=== PATIENT | male | born 1955 | race Caucasian/White ===

== ENCOUNTER 2018-05-18 22:49 | Inpatient (IN) | payer MEDICARE, OTHER ==
[2018-05-18] MEDS ORDERED: NORepinephrine 8MG/250 ML (PMX 250 ML IV (23:00)
[2018-05-18] MEDS: SOD CHLORIDE 0.9% 250 ML IV (23:43)
[2018-05-19] MEDS ORDERED: DEXTROSE 5%-0.9% NACL 1,000 ML IV
[2018-05-19] MEDS ORDERED: ACETAMINOPHEN 650MG/20.3ML CUP GTB
[2018-05-19 00:15] LABS: ADD MAN DIFF? NO
[2018-05-19 00:20] LABS: BASOPHILS % 0.2 % (0.0-2.0); EOSINOPHILS # 0.4 10^3/ul (0.0-0.5); EOSINOPHILS % 4.1 % (0.0-7.0); HEMATOCRIT 22.8 % (42.0-52.0); HEMOGLOBIN 7.4 g/dl (14.0-18.0); LYMPHOCYTES # 1.2 10^3/ul (0.8-2.9); LYMPHOCYTES % 10.9 % (15.0-51.0); MEAN CORPUSCULAR HEMOGLOBIN 29.2 pg (29.0-33.0); MEAN CORPUSCULAR HGB CONC 32.5 g/dl (32.0-37.0); MEAN CORPUSCULAR VOLUME 90.1 fl (82.0-101.0); MEAN PLATELET VOLUME 8.7 fl (7.4-10.4); MONOCYTE # 0.6 10^3/ul (0.3-0.9); MONOCYTES % 5.6 % (0.0-11.0); NEUTROPHIL # 8.4 10^3/ul (1.6-7.5); NEUTROPHILS % 78.7 % (39.0-77.0); PLATELET COUNT 205 10^3/UL (140-415); RED BLOOD COUNT 2.53 10^6/ul (4.70-6.10); RED CELL DISTRIBUTION WIDTH 14.8 % (11.5-14.5)
[2018-05-19 00:20] LABS: WHITE BLOOD COUNT 10.7 10^3/ul (4.8-10.8)
[2018-05-19 00:44] LABS: LACTIC ACID 1.5 mmol/L (0.5-2.0)
[2018-05-19] MEDS: INSULIN ASPART [NOVOLOG] 3 ML PEN SC ×6 (00:45→21:00)
[2018-05-19 00:46] LABS: ANION GAP 11 (5-13); BLOOD UREA NITROGEN 47 mg/dl (7-20); CALCIUM 9.3 mg/dl (8.4-10.2); CARBON DIOXIDE 20 mmol/L (21-31); CHLORIDE 104 mmol/L (97-110); CREATININE 1.02 mg/dl (0.61-1.24); Estimated GFR > 60 mL/min (>60); GLUCOSE 76 mg/dl (70-220); MAGNESIUM 1.6 mg/dl (1.7-2.5); POTASSIUM 3.5 mmol/L (3.5-5.1); SODIUM 135 mmol/L (135-144)
[2018-05-19] MEDS: METOCLOPRAMIDE 10 MG INJ IV ×5 (00:55→23:19)
[2018-05-19] MEDS: VANCOMYCIN 750 MG (PMX) 250 ML IVPB ×2 (00:55→15:06)
[2018-05-19] MEDS: GENTAMICIN 0.3% 5 ML OPH BOTH EYES ×7 (00:56→23:19)
[2018-05-19] MEDS ORDERED: DEXTROSE 50% 50 ML SYRINGE IV (01:00)
[2018-05-19] MEDS ORDERED: GLUCAGON 1 MG INJ IM ×2 (01:00)
[2018-05-19] MEDS ORDERED: GLUCOSE GEL 15 GRAM TUBE PO ×2 (01:00)
[2018-05-19] MEDS ORDERED: GLUCOSE GEL 15 GRAM TUBE BUCCAL (01:00)
[2018-05-19] MEDS: MAGNESIUM SULFATE 2 GM/50 ML 50 ML IVPB ×2 (01:20→13:42)
[2018-05-19] MEDS: POTASSIUM CHLORIDE 30 MEQ in DEXTROSE 5%-0.9% NACL 1,000 ML IV ×3 (01:35→21:25)
[2018-05-19] MEDS ORDERED: ACCU-CHEK XX (02:00)
[2018-05-19] MEDS: LANSOPRAZOLE 30 MG CAP GTB ×2 (05:08→17:28)
[2018-05-19] MEDS: MIDODRINE 5 MG TAB GTB ×3 (05:08→21:23)
[2018-05-19] MEDS: MEROPENEM 500MG/50 ML (PMX) 50 ML IVPB ×3 (05:09→21:45)
[2018-05-19 05:12] LABS: IMMEDIATE SPIN CROSSMATCH 1 2
[2018-05-19 07:51] LABS: AADO2 Arterial 95.2 mmHg (7.0-24.0); Allen Test ACCEPTAB; Arterial Blood Gas Oxygen Sat 94.4 mmHG (95.0-98.0); Arterial COHb 0.4 % (0.0-3.0); Arterial Fraction of Oxyhgb 93.7 % (93.0-99.0); Arterial HCO3 17.6 mmol/L (22.0-26.0); Arterial MetHb 0.3 % (0.0-1.5); MODE VENT - AC; Site Right Radial
[2018-05-19] MEDS: PHENYLephrine 20MG IN 250 ML 250 ML IV ×5 (08:32→17:22)
[2018-05-19] MEDS: ATENOLOL 25 MG TAB GTB ×2 (09:00→21:00)
[2018-05-19] MEDS: ASPIRIN 325 MG TAB GTB (09:00)
[2018-05-19] MEDS: FLUCONAZOLE 200 MG TAB GTB (09:20)
[2018-05-19] MEDS: LEVETIRACETAM (100 MG/ML) 5ML CUP GTB ×2 (09:21→21:23)
[2018-05-19] MEDS: NYSTATIN 30 GM POWDER BTL TOP ×2 (09:21→21:25)
[2018-05-19] MEDS: MEMANTINE 10 MG TAB GTB (09:21)
[2018-05-19] MEDS: SCOPOLAMINE 1.5 MG PATCH TRANSDERM (09:22)
[2018-05-19] MEDS: SILVER SULFADIAZINE 1% 25 GM CR TOP ×2 (09:22→21:25)
[2018-05-19] MEDS: INSULIN GLARGINE [LANTus] (100 UNITS/ML) SYG SC (09:33)
[2018-05-19 10:33] LABS: ADD UMIC YES; UR ASCORBIC ACID 40 mg/dL (NEGATIVE); UR BACTERIA FEW /HPF (NONE SEEN); UR BILIRUBIN (Dip) NEGATIVE (NEGATIVE); UR BLOOD (Dip) NEGATIVE (NEGATIVE); UR CLARITY SLIGHTLY CLOUDY (CLEAR); UR COLOR YELLOW (YELLOW); UR GLUCOSE (Dip) NEGATIVE (NEGATIVE); UR KETONES (Dip) NEGATIVE (NEGATIVE); UR LEUKOCYTE ESTERASE (Dip) NEGATIVE Leu/ul (NEGATIVE); UR NITRITE (Dip) NEGATIVE (NEGATIVE); UR RBC 1 /HPF (0-5); UR TOTAL PROTEIN (Dip) 1+ mg/dl (NEGATIVE); UR UROBILINOGEN (Dip) NEGATIVE (NEGATIVE); UR WBC 2 /HPF (0-5)
[2018-05-19] MEDS: LIDOCAINE 1% (MPF) 5 ML VIAL SC (11:10)
[2018-05-19] MEDS ORDERED: DOPamine-D5W 1.6 MG/ML 250 ML IV (12:30)
[2018-05-19 12:54] LABS: CREATINE KINASE < 20 IU/L (23-200)
[2018-05-19 13:05] LABS: TROPONIN-I < 0.012 ng/ml (0.000-0.120)
[2018-05-19] MEDS ORDERED: DOPamine 800 MG in DEXTROSE 5% 230 ML IV (13:30)
[2018-05-19] MEDS: POTASSIUM CHLORIDE 50 ML IVPB ×2 (13:41→15:34)
[2018-05-19] MEDS ORDERED: PHENYLephrine 20MG IN 250 ML 250 ML (17:04)
[2018-05-19] MEDS: PHENYLephrine 80 MG in DEXTROSE 5% 242 ML IV ×2 (18:44→23:59)
[2018-05-19 18:49] LABS: CK-MB 0.77 ng/ml (0.0-2.4); TROPONIN-I 0.013 ng/ml (0.000-0.120)
[2018-05-19 18:51] LABS: CREATINE KINASE < 20 IU/L (23-200)
[2018-05-19 19:02] LABS: HEMATOCRIT 29.8 % (42.0-52.0); HEMOGLOBIN 9.8 g/dl (14.0-18.0)
[2018-05-19] MEDS ORDERED: ATORVASTATIN 20 MG TAB (19:57)
[2018-05-19] MEDS: ATORVASTATIN 20 MG TAB GTB (21:23)
[2018-05-19] MEDS: LORAZEPAM 4 MG/ML VIAL IV (23:19)
[2018-05-20] MEDS: HYDROmorphONE 1 MG/ML SYG IV (00:39)
[2018-05-20] MEDS: SOD CHLORIDE 0.9% 250 ML IV (00:39)
[2018-05-20] MEDS: INSULIN ASPART [NOVOLOG] 3 ML PEN SC ×6 (00:39→20:19)
[2018-05-20 01:10] LABS: VANCOMYCIN,TROUGH 14.6 ug/ml (10.0-20.0)
[2018-05-20 01:16] LABS: CREATINE KINASE < 20 IU/L (23-200)
[2018-05-20 01:19] LABS: CK-MB 0.92 ng/ml (0.0-2.4); TROPONIN-I 0.047 ng/ml (0.000-0.120)
[2018-05-20] MEDS: VANCOMYCIN 750 MG (PMX) 250 ML IVPB (02:58)
[2018-05-20] MEDS: GENTAMICIN 0.3% 5 ML OPH BOTH EYES ×5 (04:57→20:13)
[2018-05-20 05:03] LABS: ADD MAN DIFF? NO
[2018-05-20 05:06] LABS: BASOPHIL # 0.1 10^3/ul (0.0-0.1); BASOPHILS % 0.3 % (0.0-2.0); EOSINOPHILS # 0.3 10^3/ul (0.0-0.5); EOSINOPHILS % 1.4 % (0.0-7.0); HEMATOCRIT 29.2 % (42.0-52.0); HEMOGLOBIN 9.5 g/dl (14.0-18.0); LYMPHOCYTES # 1.6 10^3/ul (0.8-2.9); LYMPHOCYTES % 8.8 % (15.0-51.0); MEAN CORPUSCULAR HEMOGLOBIN 29.4 pg (29.0-33.0); MEAN CORPUSCULAR HGB CONC 32.5 g/dl (32.0-37.0); MEAN CORPUSCULAR VOLUME 90.4 fl (82.0-101.0); MEAN PLATELET VOLUME 8.7 fl (7.4-10.4); MONOCYTE # 1.2 10^3/ul (0.3-0.9); MONOCYTES % 6.7 % (0.0-11.0); NEUTROPHIL # 14.9 10^3/ul (1.6-7.5); NEUTROPHILS % 81.9 % (39.0-77.0); PLATELET COUNT 186 10^3/UL (140-415); RED BLOOD COUNT 3.23 10^6/ul (4.70-6.10)
[2018-05-20 05:06] LABS: WHITE BLOOD COUNT 18.2 10^3/ul (4.8-10.8)
[2018-05-20 05:33] LABS: ALBUMIN/GLOBULIN RATIO 0.41; ALKALINE PHOSPHATASE 328 IU/L (42-121); ANION GAP 11 (5-13); ASPARTATE AMINO TRANSFERASE 28 IU/L (15-46); BILIRUBIN,TOTAL 0.7 mg/dl (0.2-1.3); BLOOD UREA NITROGEN 44 mg/dl (7-20); CALCIUM 9.6 mg/dl (8.4-10.2); CARBON DIOXIDE 15 mmol/L (21-31); CHLORIDE 107 mmol/L (97-110); CREATININE 1.38 mg/dl (0.61-1.24); Estimated GFR 52 mL/min (>60); GLUCOSE 136 mg/dl (70-220); POTASSIUM 4.8 mmol/L (3.5-5.1); SODIUM 133 mmol/L (135-144); TOTAL PROTEIN 6.8 g/dl (6.1-8.1)
[2018-05-20 05:34] LABS: ALANINE AMINOTRANSFERASE < 6 IU/L (13-69)
[2018-05-20] MEDS: LANSOPRAZOLE 30 MG CAP GTB ×2 (05:35→18:07)
[2018-05-20] MEDS: METOCLOPRAMIDE 10 MG INJ IV ×3 (05:35→18:07)
[2018-05-20] MEDS: MIDODRINE 5 MG TAB GTB ×3 (05:35→21:55)
[2018-05-20] MEDS: PHENYLephrine 80 MG in DEXTROSE 5% 242 ML IV ×3 (05:41→18:11)
[2018-05-20] MEDS: MEROPENEM 500MG/50 ML (PMX) 50 ML IVPB ×3 (05:58→21:55)
[2018-05-20 06:25] LABS: OCCULT BLOOD STOOL POSITIVE (NEGATIVE)
[2018-05-20] MEDS: FLUCONAZOLE 200 MG TAB GTB (08:25)
[2018-05-20] MEDS: LEVETIRACETAM (100 MG/ML) 5ML CUP GTB ×2 (08:25→20:14)
[2018-05-20] MEDS: ATENOLOL 25 MG TAB GTB ×2 (08:26→21:00)
[2018-05-20] MEDS: SILVER SULFADIAZINE 1% 25 GM CR TOP ×2 (08:27→20:14)
[2018-05-20] MEDS: NYSTATIN 30 GM POWDER BTL TOP ×2 (08:27→20:14)
[2018-05-20] MEDS: INSULIN GLARGINE [LANTus] (100 UNITS/ML) SYG SC ×2 (09:00→09:21)
[2018-05-20] MEDS: POTASSIUM CHLORIDE 30 MEQ in DEXTROSE 5%-0.9% NACL 1,000 ML IV (11:07)
[2018-05-20] MEDS: ASPIRIN 325 MG TAB GTB (12:40)
[2018-05-20] MEDS: MEMANTINE 10 MG TAB GTB (12:41)
[2018-05-20] MEDS: ATORVASTATIN 20 MG TAB GTB (20:14)
[2018-05-20] MEDS: SOD CHLORIDE 0.9% 100 ML (21:09)
[2018-05-20] MEDS: IODIXANOL LOCM 100 ML BTL (21:09)
[2018-05-21] MEDS: METOCLOPRAMIDE 10 MG INJ IV ×4 (00:30→17:28)
[2018-05-21] MEDS: GENTAMICIN 0.3% 5 ML OPH BOTH EYES ×6 (00:31→20:48)
[2018-05-21] MEDS: INSULIN ASPART [NOVOLOG] 3 ML PEN SC ×6 (00:34→20:50)
[2018-05-21] MEDS: VANCOMYCIN 750 MG (PMX) 250 ML IVPB ×2 (01:19→13:36)
[2018-05-21] MEDS: PHENYLephrine 80 MG in DEXTROSE 5% 242 ML IV (01:35)
[2018-05-21 05:02] LABS: ADD MAN DIFF? NO
[2018-05-21 05:07] LABS: WHITE BLOOD COUNT 13.2 10^3/ul (4.8-10.8)
[2018-05-21 05:07] LABS: BASOPHILS % 0.2 % (0.0-2.0); EOSINOPHILS # 0.3 10^3/ul (0.0-0.5); EOSINOPHILS % 2.5 % (0.0-7.0); HEMATOCRIT 27.3 % (42.0-52.0); HEMOGLOBIN 8.9 g/dl (14.0-18.0); LYMPHOCYTES % 7.3 % (15.0-51.0); MEAN CORPUSCULAR HEMOGLOBIN 28.9 pg (29.0-33.0); MEAN CORPUSCULAR HGB CONC 32.6 g/dl (32.0-37.0); MEAN CORPUSCULAR VOLUME 88.6 fl (82.0-101.0); MEAN PLATELET VOLUME 8.2 fl (7.4-10.4); MONOCYTE # 0.7 10^3/ul (0.3-0.9); MONOCYTES % 5.5 % (0.0-11.0); NEUTROPHIL # 11.1 10^3/ul (1.6-7.5); NEUTROPHILS % 83.8 % (39.0-77.0); PLATELET COUNT 104 10^3/UL (140-415); RED BLOOD COUNT 3.08 10^6/ul (4.70-6.10); RED CELL DISTRIBUTION WIDTH 15.1 % (11.5-14.5)
[2018-05-21 05:31] LABS: ANION GAP 14 (5-13); BLOOD UREA NITROGEN 43 mg/dl (7-20); CARBON DIOXIDE 13 mmol/L (21-31); CHLORIDE 105 mmol/L (97-110); CREATININE 1.44 mg/dl (0.61-1.24); Estimated GFR 49 mL/min (>60); GLUCOSE 105 mg/dl (70-220); MAGNESIUM 2.1 mg/dl (1.7-2.5); PHOSPHORUS 9.4 mg/dl (2.5-4.9); POTASSIUM 4.8 mmol/L (3.5-5.1); SODIUM 132 mmol/L (135-144)
[2018-05-21] MEDS: MEROPENEM 500MG/50 ML (PMX) 50 ML IVPB ×3 (05:38→21:49)
[2018-05-21] MEDS: MIDODRINE 5 MG TAB GTB ×3 (05:38→21:49)
[2018-05-21] MEDS: LANSOPRAZOLE 30 MG CAP GTB ×2 (05:38→17:28)
[2018-05-21 08:35] LABS: AADO2 Arterial 106.7 mmHg (7.0-24.0); Allen Test ACCEPTAB; Arterial Blood Gas Oxygen Sat 93.7 mmHG (95.0-98.0); Arterial COHb 0.9 % (0.0-3.0); Arterial Fraction of Oxyhgb 92.5 % (93.0-99.0); Arterial MetHb 0.4 % (0.0-1.5); Arterial pCO2 27.5 mmhg (35-45); MODE VENT - AC; Site Right Radial
[2018-05-21] MEDS: ATENOLOL 25 MG TAB GTB ×2 (09:00→20:49)
[2018-05-21] MEDS: SILVER SULFADIAZINE 1% 25 GM CR TOP (09:02)
[2018-05-21] MEDS: NYSTATIN 30 GM POWDER BTL TOP ×2 (09:02→20:51)
[2018-05-21] MEDS: MEMANTINE 10 MG TAB GTB (09:03)
[2018-05-21] MEDS: LEVETIRACETAM (100 MG/ML) 5ML CUP GTB ×2 (09:03→20:49)
[2018-05-21] MEDS: FLUCONAZOLE 200 MG TAB GTB (09:03)
[2018-05-21] MEDS: ASPIRIN 325 MG TAB GTB (09:03)
[2018-05-21] MEDS: INSULIN GLARGINE [LANTus] (100 UNITS/ML) SYG SC (09:09)
[2018-05-21] MEDS ORDERED: NORepinephrine 8MG/250 ML (PMX 250 ML (10:51)
[2018-05-21] MEDS: SOD CHLORIDE 0.9% 1,000 ML IV (11:50)
[2018-05-21] MEDS: NORepinephrine 8MG/250 ML (PMX 250 ML IV (12:02)
[2018-05-21] MEDS ORDERED: DEXTROSE 5% 1,000 ML IV (14:00)
[2018-05-21] MEDS: COLLAGENASE 5 GM (UD JAR) TOP ×2 (15:28→22:53)
[2018-05-21] MEDS: SODIUM BICARBONATE (IV ADD) 150 MEQ in DEXTROSE 5% 1,000 ML IV (16:05)
[2018-05-21] MEDS: TOBRAMYCIN/0.25NS 300 MG/5 ML INHAL NEB (20:00)
[2018-05-21] MEDS: ATORVASTATIN 20 MG TAB GTB (20:49)
[2018-05-22] MEDS: GENTAMICIN 0.3% 5 ML OPH BOTH EYES ×6 (00:30→21:52)
[2018-05-22] MEDS: METOCLOPRAMIDE 10 MG INJ IV ×3 (00:30→11:45)
[2018-05-22] MEDS: INSULIN ASPART [NOVOLOG] 3 ML PEN SC ×4 (00:34→11:45)
[2018-05-22] MEDS: VANCOMYCIN 750 MG (PMX) 250 ML IVPB ×2 (02:01→13:46)
[2018-05-22 04:56] LABS: AADO2 Arterial 97.6 mmHg (7.0-24.0); Allen Test ACCEPTAB; Arterial Blood Gas Oxygen Sat 94.4 mmHG (95.0-98.0); Arterial COHb 0.8 % (0.0-3.0); Arterial Fraction of Oxyhgb 93.4 % (93.0-99.0); Arterial HCO3 15.3 mmol/L (22.0-26.0); Arterial MetHb 0.3 % (0.0-1.5); Arterial pCO2 32.2 mmhg (35-45); MODE VENT - AC; Site Right Radial
[2018-05-22 05:26] LABS: ADD MAN DIFF? NO
[2018-05-22 05:29] LABS: ABNORMAL IP MESSAGE 1; BASOPHILS % 0.2 % (0.0-2.0); EOSINOPHILS # 0.4 10^3/ul (0.0-0.5); EOSINOPHILS % 2.9 % (0.0-7.0); HEMATOCRIT 27.2 % (42.0-52.0); LYMPHOCYTES # 0.9 10^3/ul (0.8-2.9); LYMPHOCYTES % 6.2 % (15.0-51.0); MEAN CORPUSCULAR HEMOGLOBIN 29.5 pg (29.0-33.0); MEAN CORPUSCULAR HGB CONC 33.1 g/dl (32.0-37.0); MEAN CORPUSCULAR VOLUME 89.2 fl (82.0-101.0); MEAN PLATELET VOLUME 9.3 fl (7.4-10.4); MONOCYTE # 0.5 10^3/ul (0.3-0.9); MONOCYTES % 3.8 % (0.0-11.0); NEUTROPHIL # 11.9 10^3/ul (1.6-7.5); PLATELET COUNT 85 10^3/UL (140-415); POSITIVE DIFF @See below; RED BLOOD COUNT 3.05 10^6/ul (4.70-6.10); RED CELL DISTRIBUTION WIDTH 15.1 % (11.5-14.5)
[2018-05-22 05:29] LABS: WHITE BLOOD COUNT 13.9 10^3/ul (4.8-10.8)
[2018-05-22] MEDS: MEROPENEM 500MG/50 ML (PMX) 50 ML IVPB ×2 (05:44→13:46)
[2018-05-22] MEDS: LANSOPRAZOLE 30 MG CAP GTB ×2 (05:44→18:06)
[2018-05-22] MEDS: MIDODRINE 5 MG TAB GTB ×3 (05:44→21:39)
[2018-05-22 06:01] LABS: ANION GAP 10 (5-13); BLOOD UREA NITROGEN 45 mg/dl (7-20); CALCIUM 9.9 mg/dl (8.4-10.2); CARBON DIOXIDE 15 mmol/L (21-31); CHLORIDE 107 mmol/L (97-110); CREATININE 1.46 mg/dl (0.61-1.24); Estimated GFR 49 mL/min (>60); GLUCOSE 100 mg/dl (70-220); POTASSIUM 4.2 mmol/L (3.5-5.1); SODIUM 132 mmol/L (135-144)
[2018-05-22 06:02] LABS: LACTIC ACID 2.4 mmol/L (0.5-2.0)
[2018-05-22] MEDS: COLLAGENASE 5 GM (UD JAR) TOP ×2 (08:21→21:40)
[2018-05-22] MEDS: FLUCONAZOLE 200 MG TAB GTB (08:21)
[2018-05-22] MEDS: ASPIRIN 325 MG TAB GTB (08:21)
[2018-05-22] MEDS: LEVETIRACETAM (100 MG/ML) 5ML CUP GTB ×2 (08:21→21:45)
[2018-05-22] MEDS: ATENOLOL 25 MG TAB GTB ×2 (08:21→21:00)
[2018-05-22] MEDS: MEMANTINE 10 MG TAB GTB (08:21)
[2018-05-22] MEDS: NYSTATIN 30 GM POWDER BTL TOP ×2 (08:22→21:52)
[2018-05-22] MEDS: INSULIN GLARGINE [LANTus] (100 UNITS/ML) SYG SC (08:30)
[2018-05-22] MEDS: TOBRAMYCIN/0.25NS 300 MG/5 ML INHAL NEB (10:09)
[2018-05-22] MEDS ORDERED: VANCOMYCIN IV PER PHARMACY XX (10:30)
[2018-05-22] MEDS: SODIUM BICARBONATE (IV ADD) 150 MEQ in DEXTROSE 5% 1,000 ML IV (11:44)
[2018-05-22] MEDS ORDERED: AMIKACIN IV PER PHARMACY XX (14:30)
[2018-05-22] MEDS ORDERED: AMIKACIN 950 MG in SOD CHLORIDE 0.9% 100 ML IVPB (16:00)
[2018-05-22] MEDS: AMIKACIN IVPB (18:06)
[2018-05-22] MEDS: SOD CHLORIDE 0.9% IVPB (18:06)
[2018-05-22] MEDS: ATORVASTATIN 20 MG TAB GTB (21:39)
[2018-05-22] MEDS: LINEZOLID 600 MG/D5W (PMX) 300 ML IVPB (21:40)
[2018-05-23] MEDS: GENTAMICIN 0.3% 5 ML OPH BOTH EYES ×6 (00:01→20:16)
[2018-05-23] MEDS: LANSOPRAZOLE 30 MG CAP GTB ×2 (05:00→18:43)
[2018-05-23] MEDS: MIDODRINE 5 MG TAB GTB ×3 (05:00→21:32)
[2018-05-23 05:09] LABS: ADD MAN DIFF? NO
[2018-05-23 05:12] LABS: ABNORMAL IP MESSAGE 1; BASOPHILS % 0.2 % (0.0-2.0); EOSINOPHILS # 0.5 10^3/ul (0.0-0.5); EOSINOPHILS % 3.8 % (0.0-7.0); HEMATOCRIT 26.9 % (42.0-52.0); HEMOGLOBIN 8.9 g/dl (14.0-18.0); LYMPHOCYTES # 0.8 10^3/ul (0.8-2.9); LYMPHOCYTES % 6.7 % (15.0-51.0); MEAN CORPUSCULAR HEMOGLOBIN 29.2 pg (29.0-33.0); MEAN CORPUSCULAR HGB CONC 33.1 g/dl (32.0-37.0); MEAN CORPUSCULAR VOLUME 88.2 fl (82.0-101.0); MEAN PLATELET VOLUME 9.1 fl (7.4-10.4); MONOCYTE # 0.5 10^3/ul (0.3-0.9); MONOCYTES % 3.8 % (0.0-11.0); NEUTROPHIL # 10.5 10^3/ul (1.6-7.5); NEUTROPHILS % 84.8 % (39.0-77.0); PLATELET COUNT 62 10^3/UL (140-415); POSITIVE DIFF @See below; RED BLOOD COUNT 3.05 10^6/ul (4.70-6.10); RED CELL DISTRIBUTION WIDTH 15.1 % (11.5-14.5)
[2018-05-23 05:12] LABS: WHITE BLOOD COUNT 12.4 10^3/ul (4.8-10.8)
[2018-05-23 05:24] LABS: Arterial Base Excess -8.2 mmol/L (-3.0-3); Arterial Blood Gas Oxygen Sat 93.8 mmHG (95.0-98.0); Arterial Fraction of Oxyhgb 92.6 % (93.0-99.0); Arterial HCO3 16.5 mmol/L (22.0-26.0); Arterial MetHb 0.3 % (0.0-1.5); Arterial pCO2 31.4 mmhg (35-45); MODE VENT - AC; Site Right Radial
[2018-05-23 05:31] LABS: LACTIC ACID 3.3 mmol/L (0.5-2.0)
[2018-05-23 05:32] LABS: ANION GAP 11 (5-13); BLOOD UREA NITROGEN 47 mg/dl (7-20); CALCIUM 9.2 mg/dl (8.4-10.2); CARBON DIOXIDE 16 mmol/L (21-31); CHLORIDE 104 mmol/L (97-110); CREATININE 1.25 mg/dl (0.61-1.24); Estimated GFR 58 mL/min (>60); GLUCOSE 171 mg/dl (70-220); POTASSIUM 3.7 mmol/L (3.5-5.1); SODIUM 131 mmol/L (135-144)
[2018-05-23] MEDS: SOD CHLORIDE 0.9% 250 ML IV (06:05)
[2018-05-23] MEDS: SODIUM BICARBONATE (IV ADD) 150 MEQ in DEXTROSE 5% 1,000 ML IV (06:13)
[2018-05-23] MEDS ORDERED: PENDING SANTYL ORDER FOR WOUND CARE XX (07:00)
[2018-05-23] MEDS: COLLAGENASE 5 GM (UD JAR) TOP ×2 (08:00→20:16)
[2018-05-23] MEDS: NYSTATIN 30 GM POWDER BTL TOP ×2 (08:00→20:17)
[2018-05-23] MEDS: ASPIRIN 325 MG TAB GTB (08:31)
[2018-05-23] MEDS: MEMANTINE 10 MG TAB GTB (08:31)
[2018-05-23] MEDS: FLUCONAZOLE 200 MG TAB GTB (08:31)
[2018-05-23] MEDS: LEVETIRACETAM (100 MG/ML) 5ML CUP GTB ×2 (08:31→20:16)
[2018-05-23] MEDS: ATENOLOL 25 MG TAB GTB ×2 (08:32→20:19)
[2018-05-23] MEDS: LINEZOLID 600 MG/D5W (PMX) 300 ML IVPB (08:34)
[2018-05-23] MEDS: INSULIN GLARGINE [LANTus] (100 UNITS/ML) SYG SC (08:45)
[2018-05-23 10:12] LABS: LACTIC ACID 2.9 mmol/L (0.5-2.0)
[2018-05-23] MEDS: AMPICILLIN 1 GM/NS (PMX) 50 ML IVPB ×2 (17:43→23:13)
[2018-05-23] MEDS: metroNIDAZOLE 500 MG/NS (PMX) 100 ML IVPB ×2 (18:43→21:31)
[2018-05-23] MEDS: ATORVASTATIN 20 MG TAB GTB (20:16)
[2018-05-24] MEDS: GENTAMICIN 0.3% 5 ML OPH BOTH EYES ×6 (00:45→19:58)
[2018-05-24] MEDS: SODIUM BICARBONATE (IV ADD) 150 MEQ in DEXTROSE 5% 1,000 ML IV (04:09)
[2018-05-24] MEDS: MIDODRINE 5 MG TAB GTB ×3 (06:00→22:10)
[2018-05-24] MEDS: SOD CHLORIDE 0.9% IVPB (06:16)
[2018-05-24] MEDS: AMIKACIN IVPB (06:16)
[2018-05-24] MEDS: metroNIDAZOLE 500 MG/NS (PMX) 100 ML IVPB ×3 (06:24→22:10)
[2018-05-24] MEDS: LANSOPRAZOLE 30 MG CAP GTB ×2 (06:24→18:19)
[2018-05-24] MEDS: AMPICILLIN 1 GM/NS (PMX) 50 ML IVPB ×3 (06:25→22:10)
[2018-05-24] MEDS: ATENOLOL 25 MG TAB GTB ×2 (09:00→20:46)
[2018-05-24] MEDS: LEVETIRACETAM (100 MG/ML) 5ML CUP GTB ×2 (09:08→20:41)
[2018-05-24] MEDS: FLUCONAZOLE 200 MG TAB GTB (09:08)
[2018-05-24] MEDS: ASPIRIN 325 MG TAB GTB (09:08)
[2018-05-24] MEDS: MEMANTINE 10 MG TAB GTB (09:09)
[2018-05-24] MEDS: NYSTATIN 30 GM POWDER BTL TOP ×2 (09:09→20:00)
[2018-05-24] MEDS: COLLAGENASE 5 GM (UD JAR) TOP ×2 (09:09→20:00)
[2018-05-24] MEDS: INSULIN GLARGINE [LANTus] (100 UNITS/ML) SYG SC (09:20)
[2018-05-24 12:02] LABS: ADD MAN DIFF? NO
[2018-05-24 12:07] LABS: WHITE BLOOD COUNT 13.2 10^3/ul (4.8-10.8)
[2018-05-24 12:07] LABS: ABNORMAL IP MESSAGE 1; BASOPHILS % 0.2 % (0.0-2.0); EOSINOPHILS # 0.5 10^3/ul (0.0-0.5); HEMATOCRIT 26.8 % (42.0-52.0); HEMOGLOBIN 8.9 g/dl (14.0-18.0); LYMPHOCYTES # 0.9 10^3/ul (0.8-2.9); MEAN CORPUSCULAR HEMOGLOBIN 29.1 pg (29.0-33.0); MEAN CORPUSCULAR HGB CONC 33.2 g/dl (32.0-37.0); MEAN CORPUSCULAR VOLUME 87.6 fl (82.0-101.0); MEAN PLATELET VOLUME 9.8 fl (7.4-10.4); MONOCYTE # 0.5 10^3/ul (0.3-0.9); MONOCYTES % 3.5 % (0.0-11.0); NEUTROPHIL # 11.2 10^3/ul (1.6-7.5); NEUTROPHILS % 84.6 % (39.0-77.0); PLATELET COUNT 64 10^3/UL (140-415); POSITIVE DIFF @See below; RED BLOOD COUNT 3.06 10^6/ul (4.70-6.10); RED CELL DISTRIBUTION WIDTH 15.3 % (11.5-14.5)
[2018-05-24 12:25] LABS: LACTIC ACID 2.8 mmol/L (0.5-2.0)
[2018-05-24 13:46] LABS: ANION GAP 13 (5-13); BLOOD UREA NITROGEN 47 mg/dl (7-20); CALCIUM 8.8 mg/dl (8.4-10.2); CARBON DIOXIDE 21 mmol/L (21-31); CHLORIDE 100 mmol/L (97-110); CREATININE 1.26 mg/dl (0.61-1.24); Estimated GFR 58 mL/min (>60); GLUCOSE 172 mg/dl (70-220); POTASSIUM 3.4 mmol/L (3.5-5.1); SODIUM 134 mmol/L (135-144)
[2018-05-24] MEDS: ATORVASTATIN 20 MG TAB GTB (20:41)
[2018-05-25] MEDS: GENTAMICIN 0.3% 5 ML OPH BOTH EYES ×6 (00:25→20:37)
[2018-05-25] MEDS: SOD CHLORIDE 0.9% 1,000 ML IV (00:25)
[2018-05-25] MEDS: ALBUTEROL/IPRATROPIUM (NEB) 3 ML AMP HHN (03:22)
[2018-05-25] MEDS: ACETYLCYSTEINE 20% 4 ML VIAL NEB (03:22)
[2018-05-25 05:09] LABS: ADD MAN DIFF? NO
[2018-05-25 05:10] LABS: AADO2 Arterial 113.4 mmHg (7.0-24.0); Allen Test ACCEPTAB; Arterial Base Excess -5.1 mmol/L (-3.0-3); Arterial Blood Gas Oxygen Sat 88.3 mmHG (95.0-98.0); Arterial COHb 0.3 % (0.0-3.0); Arterial Fraction of Oxyhgb 87.7 % (93.0-99.0); Arterial HCO3 20.4 mmol/L (22.0-26.0); Arterial MetHb 0.4 % (0.0-1.5); Arterial pCO2 39.9 mmhg (35-45); MODE VENT - AC; Site Right Radial
[2018-05-25 05:17] LABS: WHITE BLOOD COUNT 14.6 10^3/ul (4.8-10.8)
[2018-05-25 05:17] LABS: ABNORMAL IP MESSAGE 1; BASOPHILS % 0.1 % (0.0-2.0); EOSINOPHILS # 0.6 10^3/ul (0.0-0.5); EOSINOPHILS % 3.9 % (0.0-7.0); HEMATOCRIT 28.1 % (42.0-52.0); HEMOGLOBIN 9.1 g/dl (14.0-18.0); LYMPHOCYTES # 1.3 10^3/ul (0.8-2.9); LYMPHOCYTES % 9.1 % (15.0-51.0); MEAN CORPUSCULAR HEMOGLOBIN 28.7 pg (29.0-33.0); MEAN CORPUSCULAR HGB CONC 32.4 g/dl (32.0-37.0); MEAN CORPUSCULAR VOLUME 88.6 fl (82.0-101.0); MEAN PLATELET VOLUME 10.6 fl (7.4-10.4); MONOCYTE # 0.5 10^3/ul (0.3-0.9); MONOCYTES % 3.4 % (0.0-11.0); NEUTROPHILS % 82.7 % (39.0-77.0); PLATELET COUNT 76 10^3/UL (140-415); POSITIVE DIFF @See below; RED BLOOD COUNT 3.17 10^6/ul (4.70-6.10); RED CELL DISTRIBUTION WIDTH 15.2 % (11.5-14.5)
[2018-05-25 05:38] LABS: ALANINE AMINOTRANSFERASE 18 IU/L (13-69); ALBUMIN 1.8 g/dl (3.3-4.9); ALBUMIN/GLOBULIN RATIO 0.46; ALKALINE PHOSPHATASE 357 IU/L (42-121); ANION GAP 10 (5-13); ASPARTATE AMINO TRANSFERASE 31 IU/L (15-46); BILIRUBIN,TOTAL 0.8 mg/dl (0.2-1.3); BLOOD UREA NITROGEN 49 mg/dl (7-20); CALCIUM 8.8 mg/dl (8.4-10.2); CARBON DIOXIDE 21 mmol/L (21-31); CHLORIDE 101 mmol/L (97-110); Estimated GFR 56 mL/min (>60); GLUCOSE 119 mg/dl (70-220); MAGNESIUM 1.5 mg/dl (1.7-2.5); PHOSPHORUS 7.2 mg/dl (2.5-4.9); POTASSIUM 3.4 mmol/L (3.5-5.1); SODIUM 132 mmol/L (135-144); TOTAL PROTEIN 5.7 g/dl (6.1-8.1)
[2018-05-25] MEDS: AMPICILLIN 1 GM/NS (PMX) 50 ML IVPB ×3 (06:12→22:52)
[2018-05-25] MEDS: LANSOPRAZOLE 30 MG CAP GTB ×2 (06:12→17:57)
[2018-05-25] MEDS: MIDODRINE 5 MG TAB GTB ×3 (06:12→21:16)
[2018-05-25] MEDS: metroNIDAZOLE 500 MG/NS (PMX) 100 ML IVPB ×3 (06:13→21:16)
[2018-05-25] MEDS: MAGNESIUM SULFATE 3 GM in DEXTROSE 5% 100 ML IVPB (06:29)
[2018-05-25] MEDS: FLUCONAZOLE 200 MG TAB GTB (08:47)
[2018-05-25] MEDS: ASPIRIN 325 MG TAB GTB (08:47)
[2018-05-25] MEDS: POTASSIUM CHLORIDE 20 MEQ POWDER FOR ORAL SOLN GTB (08:47)
[2018-05-25] MEDS: MEMANTINE 10 MG TAB GTB (08:48)
[2018-05-25] MEDS: NYSTATIN 30 GM POWDER BTL TOP ×2 (08:48→20:38)
[2018-05-25] MEDS: LEVETIRACETAM (100 MG/ML) 5ML CUP GTB ×2 (08:48→20:37)
[2018-05-25] MEDS: ATENOLOL 25 MG TAB GTB ×2 (08:48→20:38)
[2018-05-25] MEDS: COLLAGENASE 5 GM (UD JAR) TOP ×2 (08:48→21:16)
[2018-05-25] MEDS: INSULIN GLARGINE [LANTus] (100 UNITS/ML) SYG SC (08:50)
[2018-05-25 13:51] LABS: ANION GAP 9 (5-13); BLOOD UREA NITROGEN 51 mg/dl (7-20); CALCIUM 8.8 mg/dl (8.4-10.2); CARBON DIOXIDE 19 mmol/L (21-31); CHLORIDE 102 mmol/L (97-110); CREATININE 1.32 mg/dl (0.61-1.24); Estimated GFR 55 mL/min (>60); GLUCOSE 133 mg/dl (70-220); MAGNESIUM 2.1 mg/dl (1.7-2.5); SODIUM 130 mmol/L (135-144)
[2018-05-25] MEDS: AMIKACIN IVPB (17:58)
[2018-05-25] MEDS: SOD CHLORIDE 0.9% IVPB (17:58)
[2018-05-25] MEDS: ATORVASTATIN 20 MG TAB GTB (20:37)
[2018-05-25 21:08] LABS: AMIKACIN TROUGH 17.1 mg/L (4.0-8.0)
[2018-05-26] MEDS: GENTAMICIN 0.3% 5 ML OPH BOTH EYES ×7 (00:46→23:08)
[2018-05-26 04:57] LABS: ADD MAN DIFF? NO
[2018-05-26 05:00] LABS: ABNORMAL IP MESSAGE 1; BASOPHILS % 0.2 % (0.0-2.0); EOSINOPHILS # 0.7 10^3/ul (0.0-0.5); EOSINOPHILS % 4.7 % (0.0-7.0); HEMATOCRIT 26.9 % (42.0-52.0); HEMOGLOBIN 8.9 g/dl (14.0-18.0); LYMPHOCYTES # 1.2 10^3/ul (0.8-2.9); LYMPHOCYTES % 8.4 % (15.0-51.0); MEAN CORPUSCULAR HEMOGLOBIN 29.2 pg (29.0-33.0); MEAN CORPUSCULAR HGB CONC 33.1 g/dl (32.0-37.0); MEAN CORPUSCULAR VOLUME 88.2 fl (82.0-101.0); MEAN PLATELET VOLUME 10.3 fl (7.4-10.4); MONOCYTE # 0.6 10^3/ul (0.3-0.9); MONOCYTES % 4.2 % (0.0-11.0); NEUTROPHIL # 11.5 10^3/ul (1.6-7.5); NEUTROPHILS % 81.4 % (39.0-77.0); PLATELET COUNT 73 10^3/UL (140-415); POSITIVE DIFF @See below; RED BLOOD COUNT 3.05 10^6/ul (4.70-6.10); RED CELL DISTRIBUTION WIDTH 15.4 % (11.5-14.5)
[2018-05-26 05:00] LABS: WHITE BLOOD COUNT 14.2 10^3/ul (4.8-10.8)
[2018-05-26 05:33] LABS: ANION GAP 13 (5-13); BLOOD UREA NITROGEN 53 mg/dl (7-20); CARBON DIOXIDE 20 mmol/L (21-31); CHLORIDE 101 mmol/L (97-110); CREATININE 1.37 mg/dl (0.61-1.24); Estimated GFR 52 mL/min (>60); GLUCOSE 106 mg/dl (70-220); POTASSIUM 3.8 mmol/L (3.5-5.1); SODIUM 134 mmol/L (135-144)
[2018-05-26] MEDS: LANSOPRAZOLE 30 MG CAP GTB ×2 (05:55→17:07)
[2018-05-26] MEDS: MIDODRINE 5 MG TAB GTB ×3 (05:55→21:03)
[2018-05-26] MEDS: metroNIDAZOLE 500 MG/NS (PMX) 100 ML IVPB ×3 (05:55→21:03)
[2018-05-26] MEDS: AMPICILLIN 1 GM/NS (PMX) 50 ML IVPB ×3 (05:55→21:03)
[2018-05-26] MEDS: ATENOLOL 25 MG TAB GTB ×2 (09:00→20:49)
[2018-05-26] MEDS: ASPIRIN 325 MG TAB GTB (09:47)
[2018-05-26] MEDS: FLUCONAZOLE 200 MG TAB GTB (09:47)
[2018-05-26] MEDS: LEVETIRACETAM (100 MG/ML) 5ML CUP GTB ×2 (09:47→20:48)
[2018-05-26] MEDS: MEMANTINE 10 MG TAB GTB (09:48)
[2018-05-26] MEDS: NYSTATIN 30 GM POWDER BTL TOP ×2 (09:49→20:48)
[2018-05-26] MEDS: INSULIN GLARGINE [LANTus] (100 UNITS/ML) SYG SC (10:01)
[2018-05-26] MEDS: COLLAGENASE 5 GM (UD JAR) TOP ×2 (11:24→20:48)
[2018-05-26] MEDS: ATORVASTATIN 20 MG TAB GTB (21:03)
[2018-05-27] MEDS: ALTEPLASE (CATHFLO) 2 MG INJ CATHETER (02:20)
[2018-05-27] MEDS: GENTAMICIN 0.3% 5 ML OPH BOTH EYES ×6 (03:56→23:10)
[2018-05-27 04:57] LABS: ABNORMAL IP MESSAGE 1; ADD MAN DIFF? NO; BASOPHILS % 0.2 % (0.0-2.0); EOSINOPHILS # 0.6 10^3/ul (0.0-0.5); EOSINOPHILS % 4.6 % (0.0-7.0); HEMATOCRIT 27.5 % (42.0-52.0); HEMOGLOBIN 8.8 g/dl (14.0-18.0); LYMPHOCYTES % 8.1 % (15.0-51.0); MEAN CORPUSCULAR HEMOGLOBIN 28.5 pg (29.0-33.0); MEAN PLATELET VOLUME 10.6 fl (7.4-10.4); MONOCYTE # 0.5 10^3/ul (0.3-0.9); MONOCYTES % 3.7 % (0.0-11.0); NEUTROPHIL # 10.5 10^3/ul (1.6-7.5); NEUTROPHILS % 82.8 % (39.0-77.0); PLATELET COUNT 65 10^3/UL (140-415); POSITIVE DIFF @See below; RED BLOOD COUNT 3.09 10^6/ul (4.70-6.10); RED CELL DISTRIBUTION WIDTH 15.9 % (11.5-14.5)
[2018-05-27 04:57] LABS: WHITE BLOOD COUNT 12.7 10^3/ul (4.8-10.8)
[2018-05-27] MEDS: AMPICILLIN 1 GM/NS (PMX) 50 ML IVPB ×4 (05:05→23:09)
[2018-05-27] MEDS: MIDODRINE 5 MG TAB GTB ×3 (05:05→21:19)
[2018-05-27] MEDS: LANSOPRAZOLE 30 MG CAP GTB ×2 (05:05→18:55)
[2018-05-27] MEDS: metroNIDAZOLE 500 MG/NS (PMX) 100 ML IVPB ×3 (05:06→21:19)
[2018-05-27 05:25] LABS: ANION GAP 15 (5-13); BLOOD UREA NITROGEN 56 mg/dl (7-20); CALCIUM 8.8 mg/dl (8.4-10.2); CARBON DIOXIDE 17 mmol/L (21-31); CHLORIDE 101 mmol/L (97-110); CREATININE 1.28 mg/dl (0.61-1.24); Estimated GFR 57 mL/min (>60); GLUCOSE 100 mg/dl (70-220); MAGNESIUM 1.8 mg/dl (1.7-2.5); POTASSIUM 3.9 mmol/L (3.5-5.1); SODIUM 133 mmol/L (135-144)
[2018-05-27] MEDS: COLLAGENASE 5 GM (UD JAR) TOP ×2 (08:31→21:10)
[2018-05-27] MEDS: LEVETIRACETAM (100 MG/ML) 5ML CUP GTB ×2 (08:31→21:15)
[2018-05-27] MEDS: FLUCONAZOLE 200 MG TAB GTB (08:32)
[2018-05-27] MEDS: ATENOLOL 25 MG TAB GTB ×2 (08:32→21:00)
[2018-05-27] MEDS: ASPIRIN 325 MG TAB GTB (08:32)
[2018-05-27] MEDS: MEMANTINE 10 MG TAB GTB (08:32)
[2018-05-27] MEDS: NYSTATIN 30 GM POWDER BTL TOP ×2 (08:36→21:10)
[2018-05-27] MEDS: INSULIN GLARGINE [LANTus] (100 UNITS/ML) SYG SC (08:53)
[2018-05-27] MEDS: SOD CHLORIDE 0.9% 500 ML IV (10:13)
[2018-05-27] MEDS: POTASSIUM CHLORIDE 50 ML IVPB ×2 (10:33→16:13)
[2018-05-27] MEDS: MAGNESIUM SULFATE 2 GM/50 ML 50 ML IVPB (10:33)
[2018-05-27] MEDS: ALBUMIN HUMAN 25% 50 ML IV ×2 (20:14→21:10)
[2018-05-27] MEDS: PHENYLephrine 80 MG in DEXTROSE 5% 242 ML IV (20:25)
[2018-05-27] MEDS: ATORVASTATIN 20 MG TAB GTB (21:15)
[2018-05-28] MEDS: VASOPRESSIN 60 UNIT in DEXTROSE 5% 57 ML IV ×3 (02:12→18:24)
[2018-05-28] MEDS: PHENYLephrine 80 MG in DEXTROSE 5% 242 ML IV ×2 (03:18→08:28)
[2018-05-28] MEDS: GENTAMICIN 0.3% 5 ML OPH BOTH EYES ×5 (04:14→20:49)
[2018-05-28] MEDS: SOD CHLORIDE 0.9% 500 ML IV (04:17)
[2018-05-28] MEDS: ALBUMIN HUMAN 25% 50 ML IV (04:37)
[2018-05-28 04:45] LABS: WHITE BLOOD COUNT 15.7 10^3/ul (4.8-10.8)
[2018-05-28 04:45] LABS: ADD MAN DIFF? NO; BASOPHILS % 0.2 % (0.0-2.0); EOSINOPHILS # 0.4 10^3/ul (0.0-0.5); EOSINOPHILS % 2.6 % (0.0-7.0); HEMATOCRIT 25.9 % (42.0-52.0); HEMOGLOBIN 8.4 g/dl (14.0-18.0); LYMPHOCYTES # 1.3 10^3/ul (0.8-2.9); LYMPHOCYTES % 8.2 % (15.0-51.0); MEAN CORPUSCULAR HGB CONC 32.4 g/dl (32.0-37.0); MEAN CORPUSCULAR VOLUME 89.3 fl (82.0-101.0); MEAN PLATELET VOLUME 10.4 fl (7.4-10.4); MONOCYTE # 0.6 10^3/ul (0.3-0.9); MONOCYTES % 3.9 % (0.0-11.0); NEUTROPHIL # 13.2 10^3/ul (1.6-7.5); NEUTROPHILS % 84.3 % (39.0-77.0); PLATELET COUNT 101 10^3/UL (140-415); RED CELL DISTRIBUTION WIDTH 15.9 % (11.5-14.5)
[2018-05-28] MEDS: metroNIDAZOLE 500 MG/NS (PMX) 100 ML IVPB ×3 (05:00→21:52)
[2018-05-28] MEDS: AMPICILLIN 1 GM/NS (PMX) 50 ML IVPB ×3 (05:00→21:52)
[2018-05-28] MEDS: LANSOPRAZOLE 30 MG CAP GTB ×2 (05:00→18:23)
[2018-05-28 05:04] LABS: ANION GAP 17 (5-13); BLOOD UREA NITROGEN 58 mg/dl (7-20); CALCIUM 8.7 mg/dl (8.4-10.2); CARBON DIOXIDE 16 mmol/L (21-31); CHLORIDE 101 mmol/L (97-110); CREATININE 1.41 mg/dl (0.61-1.24); Estimated GFR 51 mL/min (>60); GLUCOSE 73 mg/dl (70-220); MAGNESIUM 2.1 mg/dl (1.7-2.5); POTASSIUM 4.2 mmol/L (3.5-5.1); SODIUM 134 mmol/L (135-144)
[2018-05-28] MEDS: FLUCONAZOLE 200 MG TAB GTB (08:39)
[2018-05-28] MEDS: MEMANTINE 10 MG TAB GTB (08:39)
[2018-05-28] MEDS: NYSTATIN 30 GM POWDER BTL TOP ×2 (08:40→20:51)
[2018-05-28] MEDS: COLLAGENASE 5 GM (UD JAR) TOP ×2 (08:40→20:50)
[2018-05-28] MEDS: ATENOLOL 25 MG TAB GTB ×2 (08:41→20:50)
[2018-05-28] MEDS: ASPIRIN 325 MG TAB GTB (08:43)
[2018-05-28] MEDS: INSULIN GLARGINE [LANTus] (100 UNITS/ML) SYG SC (08:46)
[2018-05-28] MEDS: LEVETIRACETAM (100 MG/ML) 5ML CUP GTB ×2 (08:50→20:49)
[2018-05-28] MEDS: EPINEPHrine 4 MG in SOD CHLORIDE 0.9% 246 ML IV ×3 (09:09→19:28)
[2018-05-28] MEDS: PHENYLephrine 160 MG in DEXTROSE 5% 484 ML IV ×2 (12:21→22:23)
[2018-05-28] MEDS: MIDODRINE 2.5 MG TAB GTB ×2 (14:15→21:53)
[2018-05-28] MEDS: ATORVASTATIN 20 MG TAB GTB (20:50)
[2018-05-29] MEDS: GENTAMICIN 0.3% 5 ML OPH BOTH EYES ×6 (00:28→20:39)
[2018-05-29] MEDS: EPINEPHrine 4 MG in SOD CHLORIDE 0.9% 246 ML IV ×3 (04:38→21:43)
[2018-05-29 05:02] LABS: ADD MAN DIFF? NO
[2018-05-29 05:04] LABS: WHITE BLOOD COUNT 14.1 10^3/ul (4.8-10.8)
[2018-05-29 05:04] LABS: ABNORMAL IP MESSAGE 1; BASOPHILS % 0.3 % (0.0-2.0); EOSINOPHILS # 0.4 10^3/ul (0.0-0.5); EOSINOPHILS % 2.8 % (0.0-7.0); HEMATOCRIT 25.4 % (42.0-52.0); LYMPHOCYTES # 1.2 10^3/ul (0.8-2.9); LYMPHOCYTES % 8.2 % (15.0-51.0); MEAN CORPUSCULAR HEMOGLOBIN 28.8 pg (29.0-33.0); MEAN CORPUSCULAR HGB CONC 31.5 g/dl (32.0-37.0); MEAN CORPUSCULAR VOLUME 91.4 fl (82.0-101.0); MEAN PLATELET VOLUME 9.8 fl (7.4-10.4); MONOCYTE # 0.6 10^3/ul (0.3-0.9); MONOCYTES % 4.3 % (0.0-11.0); NEUTROPHIL # 11.8 10^3/ul (1.6-7.5); NEUTROPHILS % 83.5 % (39.0-77.0); PLATELET COUNT 93 10^3/UL (140-415); POSITIVE DIFF @See below; RED BLOOD COUNT 2.78 10^6/ul (4.70-6.10); RED CELL DISTRIBUTION WIDTH 16.1 % (11.5-14.5)
[2018-05-29] MEDS: MIDODRINE 2.5 MG TAB GTB ×3 (05:18→21:21)
[2018-05-29] MEDS: LANSOPRAZOLE 30 MG CAP GTB ×2 (05:18→17:52)
[2018-05-29 05:36] LABS: ALANINE AMINOTRANSFERASE 14 IU/L (13-69); ALBUMIN/GLOBULIN RATIO 0.51; ALKALINE PHOSPHATASE 329 IU/L (42-121); ANION GAP 13 (5-13); ASPARTATE AMINO TRANSFERASE 59 IU/L (15-46); BLOOD UREA NITROGEN 56 mg/dl (7-20); CALCIUM 8.8 mg/dl (8.4-10.2); CARBON DIOXIDE 15 mmol/L (21-31); CHLORIDE 100 mmol/L (97-110); CREATININE 1.49 mg/dl (0.61-1.24); Estimated GFR 47 mL/min (>60); GLUCOSE 94 mg/dl (70-220); SODIUM 128 mmol/L (135-144); TOTAL PROTEIN 5.9 g/dl (6.1-8.1)
[2018-05-29] MEDS: metroNIDAZOLE 500 MG/NS (PMX) 100 ML IVPB ×3 (05:51→22:59)
[2018-05-29] MEDS: AMPICILLIN 1 GM/NS (PMX) 50 ML IVPB ×3 (05:51→21:39)
[2018-05-29] MEDS: PHENYLephrine 160 MG in DEXTROSE 5% 484 ML IV ×2 (07:39→16:31)
[2018-05-29] MEDS: MEMANTINE 10 MG TAB GTB (09:00)
[2018-05-29] MEDS: ASPIRIN 325 MG TAB GTB (09:00)
[2018-05-29] MEDS: ATENOLOL 25 MG TAB GTB ×2 (09:00→20:38)
[2018-05-29] MEDS: LEVETIRACETAM (100 MG/ML) 5ML CUP GTB ×2 (09:00→20:38)
[2018-05-29] MEDS: FLUCONAZOLE 200 MG TAB GTB (09:00)
[2018-05-29] MEDS: INSULIN GLARGINE [LANTus] (100 UNITS/ML) SYG SC (09:00)
[2018-05-29] MEDS: COLLAGENASE 5 GM (UD JAR) TOP ×2 (09:45→21:39)
[2018-05-29] MEDS: NYSTATIN 30 GM POWDER BTL TOP ×2 (09:46→21:39)
[2018-05-29] MEDS: FLUCONAZOLE 400 MG/NS (PMX) 200 ML IVPB (15:02)
[2018-05-29] MEDS: VASOPRESSIN 60 UNIT in DEXTROSE 5% 57 ML IV (16:32)
[2018-05-29] MEDS: ATORVASTATIN 20 MG TAB GTB (20:38)
[2018-05-30] MEDS: FLUCONAZOLE 400 MG/NS (PMX) 200 ML IVPB ×3 (00:10→20:37)
[2018-05-30] MEDS: GENTAMICIN 0.3% 5 ML OPH BOTH EYES ×7 (00:11→23:13)
[2018-05-30] MEDS: VASOPRESSIN 60 UNIT in DEXTROSE 5% 57 ML IV ×2 (01:00→15:09)
[2018-05-30] MEDS: PHENYLephrine 160 MG in DEXTROSE 5% 484 ML IV ×3 (01:58→20:38)
[2018-05-30] MEDS: LANSOPRAZOLE 30 MG CAP GTB ×2 (06:00→18:00)
[2018-05-30] MEDS: MIDODRINE 2.5 MG TAB GTB ×3 (06:00→21:27)
[2018-05-30] MEDS: AMPICILLIN 1 GM/NS (PMX) 50 ML IVPB ×3 (06:18→22:46)
[2018-05-30] MEDS: metroNIDAZOLE 500 MG/NS (PMX) 100 ML IVPB ×3 (06:18→23:12)
[2018-05-30] MEDS: EPINEPHrine 4 MG in SOD CHLORIDE 0.9% 246 ML IV ×3 (06:56→23:28)
[2018-05-30] MEDS: NYSTATIN 30 GM POWDER BTL TOP ×2 (08:15→20:17)
[2018-05-30] MEDS: ATENOLOL 25 MG TAB GTB ×2 (08:15→20:19)
[2018-05-30] MEDS: COLLAGENASE 5 GM (UD JAR) TOP ×2 (08:15→20:17)
[2018-05-30] MEDS: ASPIRIN 325 MG TAB GTB (09:00)
[2018-05-30] MEDS: LEVETIRACETAM (100 MG/ML) 5ML CUP GTB ×2 (09:00→20:26)
[2018-05-30] MEDS: MEMANTINE 10 MG TAB GTB (09:00)
[2018-05-30] MEDS: INSULIN GLARGINE [LANTus] (100 UNITS/ML) SYG SC (09:00)
[2018-05-30] MEDS: DEXTROSE 50% 50 ML SYRINGE IV ×2 (09:19→15:10)
[2018-05-30] MEDS: ATORVASTATIN 20 MG TAB GTB (20:19)
[2018-05-31] MEDS: VASOPRESSIN 60 UNIT in DEXTROSE 5% 57 ML IV ×2 (01:00→03:45)
[2018-05-31] MEDS: PHENYLephrine 160 MG in DEXTROSE 5% 484 ML IV ×2 (01:12→05:27)
[2018-05-31] MEDS: GENTAMICIN 0.3% 5 ML OPH BOTH EYES ×2 (03:16→08:53)
[2018-05-31] MEDS: SOD CHLORIDE 0.9% 1,000 ML IV (04:59)
[2018-05-31] MEDS: DOPamine-D5W 1.6 MG/ML 250 ML IV (05:02)
[2018-05-31] MEDS: EPINEPHrine 4 MG in SOD CHLORIDE 0.9% 246 ML IV (05:35)
[2018-05-31] MEDS: LANSOPRAZOLE 30 MG CAP GTB (05:46)
[2018-05-31] MEDS: MIDODRINE 2.5 MG TAB GTB (05:46)
[2018-05-31] MEDS ORDERED: ALBUMIN HUMAN 25% 100 ML (06:05)
[2018-05-31] MEDS: AMPICILLIN 1 GM/NS (PMX) 50 ML IVPB (06:11)
[2018-05-31] MEDS: metroNIDAZOLE 500 MG/NS (PMX) 100 ML IVPB (06:27)
[2018-05-31] MEDS: ALBUMIN HUMAN 25% 100 ML IV (06:27)
[2018-05-31] MEDS ORDERED: PHENYLephrine 160 MG in DEXTROSE 5% 484 ML IV (08:30)
[2018-05-31] MEDS: ASPIRIN 325 MG TAB GTB (08:37)
[2018-05-31] MEDS: ATENOLOL 25 MG TAB GTB (08:38)
[2018-05-31] MEDS: LEVETIRACETAM (100 MG/ML) 5ML CUP GTB (08:38)
[2018-05-31] MEDS: MEMANTINE 10 MG TAB GTB (08:38)
[2018-05-31] MEDS: INSULIN GLARGINE [LANTus] (100 UNITS/ML) SYG SC (08:39)
[2018-05-31] MEDS: COLLAGENASE 5 GM (UD JAR) TOP (08:53)
[2018-05-31] MEDS: FLUCONAZOLE 400 MG/NS (PMX) 200 ML IVPB (08:53)
[2018-05-31] MEDS: NYSTATIN 30 GM POWDER BTL TOP (08:53)
== END 2018-05-31 12:11 | disposition expired | DRG 870 ==
LOC: ICU 22:49
PROC: 5A1955Z Respiratory Ventilation, Greater than 96 Consecutive Hours (ICD-10-PCS; principal; 2018-05-19)
PROC: 02HV33Z Insertion of Infusion Device into Superior Vena Cava, Percutaneous Approach (ICD-10-PCS; 2018-05-19)
PROC: 30233N1 Transfusion of Nonautologous Red Blood Cells into Peripheral Vein, Percutaneous Approach (ICD-10-PCS; 2018-05-19)
DX: A41.9 Sepsis, unspecified organism (principal); R65.21 Severe sepsis with septic shock; J18.9 Pneumonia, unspecified organism; R53.2 Functional quadriplegia; J96.10 Chronic respiratory failure, unspecified whether with hypoxia or hypercapnia; G93.40 Encephalopathy, unspecified; B38.2 Pulmonary coccidioidomycosis, unspecified; N17.9 Acute kidney failure, unspecified; E87.2 Acidosis; J44.0 Chronic obstructive pulmonary disease with (acute) lower respiratory infection; M86.9 Osteomyelitis, unspecified; E87.1 Hypo-osmolality and hyponatremia; L89.150 Pressure ulcer of sacral region, unstageable; Z93.0 Tracheostomy status; Z87.01 Personal history of pneumonia (recurrent); D64.89 Other specified anemias; R13.10 Dysphagia, unspecified; I95.9 Hypotension, unspecified; I49.3 Ventricular premature depolarization; E78.5 Hyperlipidemia, unspecified; G40.909 Epilepsy, unspecified, not intractable, without status epilepticus; Z66 Do not resuscitate; E11.51 Type 2 diabetes mellitus with diabetic peripheral angiopathy without gangrene; H70.91 Unspecified mastoiditis, right ear; E11.69 Type 2 diabetes mellitus with other specified complication; D69.6 Thrombocytopenia, unspecified; R09.2 Respiratory arrest; I10 Essential (primary) hypertension; Z93.1 Gastrostomy status; Z89.519 Acquired absence of unspecified leg below knee; Z87.2 Personal history of diseases of the skin and subcutaneous tissue; I69.365 Other paralytic syndrome following cerebral infarction, bilateral
CPT/HCPCS: 36430; 36569; 36600; 70470; 71045; 74018; 76937; 80048; 80053; 80150; 80202; 81001; 82270; 82550; 82553; 82803; 82962; 83605; 83735; 84100; 84484; 85014; 85018; 85025; 86850; 86900; 86901; 86920; 87040; 87045; 87070; 87075; 87081; 87086; 89220; 93005; 94002; 94003; 94640